=== PATIENT | female | born 1990 | race Two or more races ===

== ENCOUNTER 2021-05-25 05:56 | Day surgery (SDC) | payer OTHER ==
[~2021-05-25 05:56] MED LIST: SYNTHROID100 MCG PO
[2021-06-01] MEDS ORDERED: NIFEDIPINE ER30 MG (00:41)
== END 2021-05-25 15:15 | disposition home or self-care (01) ==
LOC: CIR.AMB 05:56
PROVIDERS: ATTEND Obstetrics & Gynecology Maternal & Fetal Medicine
DX: O34.32 Maternal care for cervical incompetence, second trimester (principal); O9A.112 Malignant neoplasm complicating pregnancy, second trimester; Z3A.17 17 weeks gestation of pregnancy; D06.0 Carcinoma in situ of endocervix; N72 Inflammatory disease of cervix uteri

== ENCOUNTER 2021-06-01 01:17 | Inpatient (IN) | payer OTHER ==
[~2021-06-01] VITALS: Ht 160 cm; Wt 78.9 kg
[~2021-06-01 01:17] MED LIST changes: +NIFEDIPINE ER30 MG
[2021-06-01] MEDS ORDERED: PRENATAL TABLE1 EAC1 PO (05:37)
[2021-06-01] MEDS ORDERED: FAMOTIDINE40 MG (07:57)
[2021-06-01] MEDS ORDERED: OMEPRAZOLE40 MG (07:57)
[2021-06-01] MEDS ORDERED: TERBINAFINE HC250 MG (07:57)
== END 2021-06-03 14:37 | disposition home or self-care (01) | DRG 805 ==
LOC: LDR 01:17 → O/R 07:33 → OB/GYN 07:58 → SURG-SUITE 10:45
PROVIDERS: ADMIT Obstetrics & Gynecology Maternal & Fetal Medicine; ATTEND Obstetrics & Gynecology Maternal & Fetal Medicine
PROC: 10D07Z8 Extraction of Products of Conception, Other, Via Natural or Artificial Opening (ICD-10-PCS; 2021-06-01)
PROC: 10D17Z9 Manual Extraction of Products of Conception, Retained, Via Natural or Artificial Opening (ICD-10-PCS; principal; 2021-06-01 07:00)
PROC: 30233N1 Transfusion of Nonautologous Red Blood Cells into Peripheral Vein, Percutaneous Approach (ICD-10-PCS; 2021-06-02)
DX: O02.1 Missed abortion (principal); O34.32 Maternal care for cervical incompetence, second trimester; Z37.1 Single stillbirth; O41.1220 Chorioamnionitis, second trimester, not applicable or unspecified; O72.0 Third-stage hemorrhage; Z3A.18 18 weeks gestation of pregnancy; Z20.822 Contact with and (suspected) exposure to COVID-19

== ENCOUNTER 2022-09-18 23:48 | Emergency (ER) | payer OTHER ==
[~2022-09-18] VITALS: Ht 160 cm; Wt 85.7 kg
[~2022-09-18 23:48] MED LIST changes: +FAMOTIDINE40 MG; +OMEPRAZOLE40 MG; +PRENATAL TABLE1 EAC1 PO; +TERBINAFINE HC250 MG
[2022-09-19] MEDS ORDERED: TIROSINT112 MCG PO (00:10)
[2022-09-19] MEDS ORDERED: DICY20TA PO (04:56)
[2022-09-19] MEDS ORDERED: TYLOPHEN500 MG PO (04:56)
[2022-09-19] MEDS ORDERED: PEPCID AC20 MG PO (04:56)
[2022-09-19] MEDS ORDERED: INTESTINEX680 M1 PO (04:56)
== END 2022-09-19 05:19 | disposition home or self-care (01) ==
LOC: ER 23:48
DX: B34.9 Viral infection, unspecified (principal); R53.81 Other malaise; K52.9 Noninfective gastroenteritis and colitis, unspecified; Z20.822 Contact with and (suspected) exposure to COVID-19